=== PATIENT | male | born 1985 | race Caucasian/White ===

== ENCOUNTER → 2017-06-11 | Outpatient (CLI) | payer OTHER ==
[~2017-06-11] VITALS: Ht 185.4 cm; Wt 108.9 kg
[~2017-06-11] MED LIST: DAILY VALUE1 EACH PO; NEXIUM40 MG PO; PRILOSEC OTC20 MG PO
== END | disposition home or self-care (01) ==
LOC: AMB 14:07
DX: K29.70 Gastritis, unspecified, without bleeding (principal); K21.9 Gastro-esophageal reflux disease without esophagitis; F17.210 Nicotine dependence, cigarettes, uncomplicated; Z83.71 Family history of colonic polyps; E66.9 Obesity, unspecified
CPT/HCPCS: 88305; 88342 TC; J2250